=== PATIENT | male | born 1980 | race Caucasian/White ===

== ENCOUNTER 2020-02-06 08:23 | Emergency (ER) | payer BC ==
--- NOTE | 2020-02-06 08:55 | EDM.PDOC ---
ED HPI GENERAL MEDICAL PROBLEM - General Chief Complaint: Genitourinary Problem Stated Complaint: PT REFERRED FROM [facility] FOR TESTICLE SWELLING Time Seen by Provider: 02/06/20 08:40 Source of Information: Reports: Patient History Limitations: Reports: No Limitations - History of Present Illness INITIAL COMMENTS - FREE TEXT/NARRATIVE: Patient is a 39-year-old male who is complaining of having left testicular pain and swelling this been ongoing for the past 3 days. Patient was seen at [facility] and had a UA done which showed negative blood with 3-5 white blood cells negative leukocyte Estrace negative and 1-4 red blood cells. She has not had similar symptoms in the past. Pain is 3-4 out of 10 with occasional sharp pain. Pain is not increasing. He feels better with scrotal support. Duration: Day(s): (three) left testicle Pain Score (Numeric/FACES): 3 - Related Data Allergies Allergy/AdvReac Type Severity Reaction Status Date / Time No Known Allergies Allergy Verified 02/06/20 08:42 Home Meds: Home Meds Acetaminophen/HYDROcodone [Davy 325-5 MG] 1 tab PO Q6H PRN #10 tablet 02/06/20 [Rx] QUEtiapine [SEROquel] 25 mg PO BEDTIME 02/06/20 [History] buPROPion HCL [Wellbutrin Xl] 300 mg PO DAILY 02/06/20 [History] Past Medical History - Infectious Disease History Infectious Disease History: Reports: Chicken Pox - Past Surgical History Male Surgical History: Reports: Vasectomy Social & Family History - Family History Family Medical History: Noncontributory - Tobacco Use Smoking Status *Q: Never Smoker - Recreational Drug Use Recreational Drug Use: No ED ROS GENERAL - Review of Systems Review Of Systems: Comprehensive ROS is negative, except as noted in HPI. ED EXAM, GI/ABD - Physical Exam Exam: See Below Exam Limited By: No Limitations General Appearance: Alert, No Apparent Distress Head: Atraumatic Neck: Normal Inspection Respiratory/Chest: No Respiratory Distress GI/Abdominal Exam: Normal Bowel Sounds, Soft, Non-Tender (Male) Exam: No Hernia, Scrotal Swelling, Scrotum Tenderness (L), Testicular Tenderness (L) Back Exam: Normal Inspection. No: CVA Tenderness (L), CVA Tenderness (R) Extremities: Normal Inspection Neurological: Alert, Oriented Psychiatric: Normal Affect, Normal Mood Skin Exam: Warm, Dry Course - Vital Signs Text/Narrative:: Ultrasound shows a left testicular varicocele. He also has a small cyst and small hydrocele on both sides. No indication of torsion. Patient's urine from yesterday showed no sign of any infection. We are discharging him at this point normally I would set him up with our urologist which he refuses since he is going home next week and wants to follow-up with his own urologist. Continue scrotal support and I am recommending ibuprofen with meals will give a prescription for a few Davy. Last Recorded V/S: Last Vital Signs Temp 36.6 C 02/06/20 08:43 Pulse 106 H 02/06/20 08:43 Resp 20 02/06/20 08:43 BP 145/111 H 02/06/20 08:43 Pulse Ox 96 02/06/20 08:43 - Orders/Labs/Meds Orders: Active Orders 24 hr Category Date Time Status Scrotum and Contents [US] Routine Exams 02/06/20 11:10 Taken Departure - Departure Time of Disposition: 11:22 Disposition: Home, Self-Care 01 Condition: Good Clinical Impression: Left varicocele - Discharge Information Instructions: Pain Medicine Instructions, [id number] Referrals: PCP,None [Primary Care Provider] - Forms: ED Department Discharge Additional Instructions: The following information is given to patients seen in the emergency department who are being discharged to home. This information is to outline your options for follow-up care. We provide all patients seen in our emergency department with a follow-up referral. The need for follow-up, as well as the timing and circumstances, are variable depending upon the specifics of your emergency department visit. If you don't have a primary care physician on staff, we will provide you with a referral. We always advise you to contact your personal physician following an emergency department visit to inform them of the circumstance of the visit and for follow-up with them and/or the need for any referrals to a consulting specialist. The emergency department will also refer you to a specialist when appropriate. This referral assures that you have the opportunity for follow-up care with a specialist. All of these measure are taken in an effort to provide you with optimal care, which includes your follow-up. Under all circumstances we always encourage you to contact your private physician who remains a resource for coordinating your care. When calling for follow-up care, please make the office aware that this follow-up is from your recent emergency room visit. If for any reason you are refused follow-up, please contact the [facility] Department at and asked to speak to the emergency department charge nurse. Care Plan Goals: Scrotal support. Naprosyn or ibuprofen with meals. Davy if needed. Return to ER if worse. Follow-up with urologist as soon as possible. Sepsis Event Note - Evaluation Sepsis Screening Result: No Definite Risk - Focused Exam Vital Signs: Vital Signs Temp Pulse Resp BP Pulse Ox 02/06/20 08:43 36.6 C 106 H 20 145/111 H 96 Date Exam was Performed: 02/06/20 Time Exam was Performed: 11:19 - My Orders Last 24 Hours: My Active Orders 02/06/20 11:10 Scrotum and Contents [US] Routine - Assessment/Plan Last 24 Hours: My Active Orders 02/06/20 11:10 Scrotum and Contents [US] Routine
--- NOTE | 2020-02-06 10:57 | US ---
Testicular ultrasound: Multiple real-time images were obtained. Comparison: No prior testicular imaging. Left-sided varicocele is identified. 2 small epididymal cysts are noted measuring 5 mm and 2 mm. Right epididymis shows 2 small cyst measuring 3 mm and 3 mm. Small bilateral hydroceles are noted. Testicles show a homogeneous ultrasound appearance without intratesticular mass. Both venous and arterial Doppler blood flow is seen. Measurements: Right testicle: 5.5 x 2.8 x 3.1 cm Left testicle: 5.7 x 2.8 x 3.4 cm Impression: 1. Left-sided varicocele. 2. 2 small epididymal cysts on both sides. 3. Small bilateral hydroceles. Diagnostic code #2 This report was dictated in MDT
--- NOTE | 2020-02-06 11:21 | US ---
Testicular ultrasound: Multiple real-time images were obtained. Comparison: No prior testicular imaging. Left-sided varicocele is identified. Two small epididymal cysts are noted measuring 5 mm and 2 mm. Right epididymis shows two small cysts measuring 3 mm and 3 mm. Small bilateral hydroceles are noted. Testicles show a homogeneous ultrasound appearance without intratesticular mass. Both venous and arterial Doppler blood flow is seen. Measurements: Right testicle: 5.5 x 2.8 x 3.1 cm Left testicle: 5.7 x 2.8 x 3.4 cm Impression: 1. Left-sided varicocele. 2. Two small epididymal cysts on both sides. 3. Small bilateral hydroceles. Diagnostic code #2 This report was dictated in MDT MTDD
== END 2020-02-06 11:36 | disposition home or self-care (01) ==
LOC: MW.ED 08:23
DX: I86.1 Scrotal varices (principal); N43.3 Hydrocele, unspecified; Z79.899 Other long term (current) drug therapy
CPT/HCPCS: 76870; 76870-26; 93976; 93976-26; 99283; 99284-25